=== PATIENT | female | born 1990 | race Caucasian/White ===

== ENCOUNTER 2020-01-06 05:46 | Inpatient (IN) | payer BC ==
[~2020-01-06] VITALS: Ht 152.4 cm; Wt 53.5 kg
[2020-01-06] MEDS ORDERED: LACTATED RINGERS 1000ML 1,000 ML IV PRN (06:06)
[2020-01-06 06:14] VITALS: BP 118/70
[2020-01-06] MEDS ORDERED: LACTATED RINGERS 500 ML 500 ML IV PRN (06:15)
[2020-01-06] MEDS ORDERED: EPHEDRINE SULFATE 50 MG/ML AMPULE IVP PRN ×2 (06:15→16:15)
[2020-01-06] MEDS ORDERED: NALOXONE HCL 0.4 MG/1 ML ML IV PRN (06:15)
[2020-01-06] MEDS ORDERED: ROPIVACAINE 0.2% 100ML VIAL 100 ML EP PRN (06:15)
[2020-01-06] MEDS ORDERED: OXYTOCIN-LR 20 UNITS/1000 ML 1,000 ML IV SCH ×2 (06:15→07:00)
[2020-01-06] MEDS ORDERED: PREN1TAB80 PO (06:17)
[2020-01-06] MEDS ORDERED: ASPI-1197 PO (06:18)
[2020-01-06 06:40] LABS: APPEARANCE,URINE Cloudy (CLEAR); BILIRUBIN,URINE Negative (NEGATIVE); COLOR,URINE Yellow (YELLOW); GLUCOSE, URINE (UA) Negative (NEGATIVE); KETONES,URINE Negative (NEGATIVE); LEUKOCYTE ESTERASE ,URINE Moderate (NEGATIVE); NITRATE,URINE Negative (NEGATIVE); OCCULT BLOOD,URINE Negative (NEGATIVE); PROTEIN,URINE Negative (NEGATIVE); UROBILINOGEN,URINE 0.2 mg/dL (0.2-1.0)
[2020-01-06] MEDS ORDERED: OXYTOCIN 10 USP UNITS/ML 20 UNIT in LACTATED RINGERS 1000ML 1,000 ML IV SCH (06:45)
[2020-01-06] MEDS ORDERED: OXYTOCIN-LR 20 UNITS/1000 ML 1,000 ML IV ONE (06:51)
[2020-01-06 06:54] LABS: BACTERIA,URINE Few /HPF (None Seen); RBC,URINE 0-1 /HPF (0-1); SQUAMOUS EPITHELIAL CELL,UR 0-2 /HPF (0-2)
[2020-01-06 06:55] LABS: AMORPHOUS SEDIMENT,UR Moderate /LPF (None Seen)
[2020-01-06 06:56] LABS: HEMATOCRIT 36.7 % (36-48); MEAN CORPUSCULAR HEMOGLOBIN 30.4 pg (27.0-33.0); MEAN CORPUSCULAR HGB CONC 32.4 g/dL (32.0-36.0); MEAN CORPUSCULAR VOLUME 93.9 fL (79-99); RED BLOOD CELL COUNT(AUTO) 3.91 MIL/uL (4.00-5.50); RED CELL DISTRIBUTION WIDTH 13.2 % (11.0-15.5); WHITE BLOOD COUNT (AUTO) 9.5 K/uL (4.8-10.8)
[2020-01-06] MEDS ORDERED: FENTANYL CITRATE PF 50 MCG/1 ML 2ML VIAL ONE ×2 (07:57→13:09)
[2020-01-06] MEDS ORDERED: CALDOLOR 800MG+NS 250ML 250 ML IV ONE (13:01)
[2020-01-06] MEDS ORDERED: CEFAZOLIN SODIUM 1 GM VIAL ONE (13:02)
[2020-01-06] MEDS ORDERED: CEFAZOLIN SODIUM 1 GM VIAL IVP ONE (13:05)
[2020-01-06] MEDS ORDERED: METHYLERGONOVINE MALEATE 0.2 MG/1 ML ML ONE (13:09)
[2020-01-06] MEDS ORDERED: DURAMORPH PF1 MG/ML 10ML AMP IV ONE (13:10)
[2020-01-06] MEDS ORDERED: MISOPROSTOL 200 MCG TABLET ONE (13:10)
[2020-01-06] MEDS ORDERED: OXYTOCIN 10 USP UNITS/ML ONE (13:18)
[2020-01-06] MEDS ORDERED: ONDANSETRON HCL 4 MG/2 ML VIAL ONE (13:40)
[2020-01-06] MEDS ORDERED: LIDOCAINE 2%-EPI 1:200,000 20 ML VIAL IJ ONE (13:40)
[2020-01-06] MEDS ORDERED: PROMETHAZINE HCL 25 MG/ML 1ML AMPULE IM PRN (14:00)
[2020-01-06] MEDS ORDERED: HYDROCODONE/ACETAMINOPHEN 5/325 MG TAB PO PRN (14:00)
[2020-01-06] MEDS ORDERED: MEPERIDINE-PF 75 MG/ML SYG IM PRN (14:00)
[2020-01-06] MEDS ORDERED: SODIUM CHLORIDE 0.9% 10 ML VIAL IVP PRN (14:00)
[2020-01-06] MEDS ORDERED: OXYTOCIN-LR 20 UNITS/1000 ML 1,000 ML IV PRN (14:00)
[2020-01-06] MEDS ORDERED: ACETAMINOPHEN EXTRA STRENGTH 500 MG TABLET PO PRN (14:00)
[2020-01-06] MEDS ORDERED: DIPH,PERTUSS(ACELL),TET VAC/PF 0.5 ML VIAL IM SCH (14:00)
[2020-01-06] MEDS ORDERED: MEASLES/MUMPS/RUBELLA VACCINE, LIVE 0.5 ML/VIAL SQ SCH (14:00)
[2020-01-06] MEDS ORDERED: BISACODYL 10 MG SUPP.RECT RC PRN (14:00)
[2020-01-06] MEDS ORDERED: DEXTROSE 5 %-0.45 % NACL 1,000 ML IV PRN (14:00)
[2020-01-06] MEDS ORDERED: DIPHENHYDRAMINE HCL 25 MG CAPSULE PO PRN (14:00)
[2020-01-06] MEDS ORDERED: LANOLIN 30GM OINTMENT TP PRN (14:00)
[2020-01-06] MEDS: IBUPROFEN 800 MG TAB PO SCH (14:00)
[2020-01-06] MEDS ORDERED: CEFAZOLIN SODIUM 1 GM VIAL IVP PRN (15:30)
[2020-01-06] MEDS ORDERED: CALDOLOR 800MG+NS 250ML 250 ML IV PRN (15:30)
[2020-01-06] MEDS ORDERED: LACTATED RINGERS 1000ML 1,000 ML IV SCH (15:30)
[2020-01-06] MEDS ORDERED: MEPERIDINE-PF 50 MG/ML SYG ONE (15:50)
[2020-01-06] MEDS ORDERED: MEPERIDINE-PF 25 MG/ML SYG ONE (15:50)
[2020-01-06 16:11] VITALS: BP 105/71
[2020-01-06] MEDS ORDERED: LORATADINE 10 MG TABLET PO PRN (16:15)
[2020-01-06] MEDS ORDERED: NALOXONE HCL 0.4 MG/1 ML ML IVP PRN ×3 (16:15)
[2020-01-06] MEDS ORDERED: DiphenhydrAMINE HCL 50 MG/ML VIAL IVP PRN (16:15)
[2020-01-06] MEDS ORDERED: ONDANSETRON HCL 4 MG/2 ML VIAL IVP PRN (16:15)
--- NOTE | 2020-01-06 19:20 | NUR ---
Patient received; Report received from Fartun Gaitan RN. Patient received with IV of LR with 20 units Pitocin infusing at 150 ml/hour. STOCK REPAIRER pump continuous. [place] Catheter patent with clear yellow urine. Fundus firm with small Lochia rubra. Plan of care discussed with patient verbalizes understanding.
[2020-01-06 19:41] VITALS: BP 114/65
[2020-01-06] MEDS: SIMETHICONE 80 MG TAB.CHEW PO PRN (21:14)
[2020-01-06] MEDS: DOCUSATE SODIUM 100 MG CAP PO SCH (21:14)
[2020-01-06] MEDS: CALDOLOR 800MG+NS 250ML 250 ML IV SCH (22:12)
[2020-01-06 23:29] VITALS: BP 101/62
[2020-01-07 03:13] VITALS: BP 91/50
[2020-01-07 05:21] LABS: HEMATOCRIT 28.6 % (36-48); MEAN CORPUSCULAR HEMOGLOBIN 31.2 pg (27.0-33.0); MEAN CORPUSCULAR HGB CONC 32.5 g/dL (32.0-36.0); RED BLOOD CELL COUNT(AUTO) 2.98 MIL/uL (4.00-5.50); WHITE BLOOD COUNT (AUTO) 15.6 K/uL (4.8-10.8)
[2020-01-07] MEDS: IBUPROFEN 800 MG TAB PO SCH ×2 (06:00→14:08)
[2020-01-07] MEDS: CALDOLOR 800MG+NS 250ML 250 ML IV SCH (06:00)
[2020-01-07 06:10] LABS: HEPATITIS Bs ANTIGEN SCREEN P Negative (Negative)
--- NOTE | 2020-01-07 07:00 | NUR ---
HELP DESK TECHNICIAN; Larry Operator pump stopped. Epidural Catheter taken out, catheter intact. Patient tolerated it well. Report Given to Christina Gaitan RN for continuos care.
[2020-01-07 07:44] VITALS: BP 95/55
[2020-01-07] MEDS ORDERED: LIDOCAINE 5% TOPICAL PATCH TP SCH (09:00)
[2020-01-07] MEDS: ACETAMINOPHEN-CODEINE 300/30MG TAB PO PRN ×2 (09:14→12:49)
[2020-01-07] MEDS: DOCUSATE SODIUM 100 MG CAP PO SCH (09:14)
[2020-01-07] MEDS: SIMETHICONE 80 MG TAB.CHEW PO PRN ×2 (09:14→12:49)
--- NOTE | 2020-01-07 09:30 | NUR ---
POST OP DAY 1 RAMIRES CATHETER D/C'D WITH TIP INTACT. PT ASSISTED OOB TO CHAIR AND TOLERATED WELL. POC DISCUSSED FOR PT TO AMBULATE IN HALLWAY 4 TIMES DAILY. VERBALIZED UNDERSTANDING. WILL CONTINUE TO MONITOR THROUGHOUT SHIFT.
[2020-01-07 11:54] VITALS: BP 105/59
--- NOTE | 2020-01-07 16:15 | NUR ---
pt is dismissed in stable condition, discharge instructions were given by Fartun Marie Brought to private car via wheelchair by Sarah. Ramirez pcp Addendum: 01/07/20 at 1629 by HAO FERGUSON RN Amended: Links added.
== END 2020-01-07 16:15 | disposition home or self-care (01) | DRG 786 ==
LOC: LDH 05:46 → WSH 16:10
PROVIDERS: ADMIT Obstetrics & Gynecology; ATTEND Obstetrics & Gynecology
PROC: 10D00Z1 Extraction of Products of Conception, Low, Open Approach (ICD-10-PCS; principal; 2020-01-06 13:02)
PROC: 3E0234Z Introduction of Serum, Toxoid and Vaccine into Muscle, Percutaneous Approach (ICD-10-PCS; 2020-01-07)
DX: O76 Abnormality in fetal heart rate and rhythm complicating labor and delivery (principal); O45.093 Premature separation of placenta with other coagulation defect, third trimester; O62.2 Other uterine inertia; Z3A.37 37 weeks gestation of pregnancy; Z37.0 Single live birth; Z23 Encounter for immunization; O69.89X0 Labor and delivery complicated by other cord complications, not applicable or unspecified
CPT/HCPCS: 36415; 59510; 72190; 81001; 85027; 86592; 86850; 86900; 86901; 87088; 87340; 90715; A4314; A4344; G0378; J0690; J1741; J2175; J2210; J2274; J2405; J2550; J2590; J2795; J3010; J3490; J7120

== ENCOUNTER 2023-09-07 10:25 | Observation (INO) | payer BC ==
[~2023-09-07 10:25] MED LIST: ASPI-1197 PO; PREN1TAB80 PO
[2023-09-07 11:00] LABS: HEMATOCRIT 36.2 % (36-48); MEAN CORPUSCULAR HEMOGLOBIN 30.8 pg (27.0-33.0); MEAN CORPUSCULAR HGB CONC 33.7 g/dL (32.0-36.0); MEAN CORPUSCULAR VOLUME 91.4 fL (79-99); RED BLOOD CELL COUNT(AUTO) 3.96 MIL/uL (4.00-5.50); RED CELL DISTRIBUTION WIDTH 12.5 % (11.0-15.5); WHITE BLOOD COUNT (AUTO) 7.4 K/uL (4.8-10.8)
[2023-09-07] MEDS ORDERED: LACTATED RINGERS 1000ML 1,000 ML IV SCH (11:00)
[2023-09-07] MEDS ORDERED: MISOPROSTOL 200 MCG TABLET VG ONE (11:00)
[2023-09-07] MEDS ORDERED: MIDAZOLAM HCL 1 MG/ML 2ML VIAL ONE (12:47)
[2023-09-07] MEDS ORDERED: LIDOCAINE PF 100MG/5ML (2%) SYRINGE 5ML ONE (12:47)
[2023-09-07] MEDS ORDERED: PROPOFOL 10 MG/ML 20ML VIAL IV ONE ×2 (12:48→12:56)
[2023-09-07] MEDS ORDERED: FENTANYL CITRATE PF 50 MCG/1 ML 2ML VIAL ONE (12:48)
[2023-09-07] MEDS ORDERED: MISOPROSTOL 200 MCG TABLET PR ONE ×2 (13:20→14:00)
[2023-09-07] MEDS ORDERED: MEPERIDINE-PF 25 MG/ML SYG ONE (13:56)
[2023-09-07 14:20] VITALS: BP 119/78; PULSE 73; RESP 18
[2023-09-07] MEDS ORDERED: PROG100C11 PO (17:03)
[2023-09-07] MEDS ORDERED: PREN-134 PO (17:03)
[2023-09-07] MEDS ORDERED: AEC81 PO (17:03)
[2023-09-07 17:35] VITALS: BP 111/56; PULSE 76; RESP 18
== END 2023-09-07 18:20 | disposition home or self-care (01) ==
LOC: WSO 10:25 → UNDOADMOB 10:37 → EDSTATUS 10:37 → WSH 10:37 → UNDODISOB 18:20
PROVIDERS: ADMIT Internal Medicine; ATTEND Internal Medicine
DX: O02.1 Missed abortion (principal); Z3A.10 10 weeks gestation of pregnancy
CPT/HCPCS: 85027; 36415; 88305; 59820; G0378 ×7; G0379; A4351; J3010; J2001; J2250; J2704 ×2; J2175; A4649; J3490